=== PATIENT | male | born 1960 | race Caucasian/White ===

== ENCOUNTER 2018-01-11 10:02 | Emergency (ER) | payer OTHER ==
[~2018-01-11] VITALS: Ht 182.9 cm; Wt 63.7 kg
[~2018-01-11 10:02] MED LIST: DOXY40CA PO; [UNRECOGNIZED DRUG - CODE] OP
[2018-01-11 10:07] VITALS: BP 159/87; TEMP 36.4; Ht 182.9 cm; Wt 63.7 kg
--- NOTE | 2018-01-11 10:47 | DIAGNOSTIC IMAGING REPORT ---
L FOREARM 2 VIEWS ROUTINE CLINICAL HISTORY: Left forearm pain status post trauma COMPARISON: None DISCUSSION: There is a joint effusion at the level the elbow. No fractures or dislocations are visualized. The provided AP view is obliqued. There is an olecranon spur IMPRESSION: 1. Joint effusion at the level the elbow. No fractures are visualized. The presence of a joint effusion could indicate an occult fracture. Electronically signed by: Devang Slade M.D. 01/11/2018 10:46 AM Dictated Date/Time: 01/11/2018 10:44 AM
--- NOTE | 2018-01-11 10:48 | DIAGNOSTIC IMAGING REPORT ---
L WRIST MIN 3 VIEWS ROUTINE CLINICAL HISTORY: Left wrist pain status post trauma COMPARISON: None. DISCUSSION: No fractures or dislocations are visualized. IMPRESSION: No fractures identified. Electronically signed by: Devang Slade M.D. 01/11/2018 10:47 AM Dictated Date/Time: 01/11/2018 10:46 AM
--- NOTE | 2018-01-11 10:49 | DIAGNOSTIC IMAGING REPORT ---
L ELBOW MIN 3 VIEWS ROUTINE CLINICAL HISTORY: Left elbow pain status post trauma COMPARISON: None. DISCUSSION: There is a small olecranon spur. There is displacement of the anterior humeral fat pad indicative of a joint effusion. No fractures are identified on conventional radiographic imaging IMPRESSION: 1. No fractures or dislocations identified 2. Small joint effusion. In the setting of trauma this could indicate an occult fracture. Electronically signed by: Devang Slade M.D. 01/11/2018 10:48 AM Dictated Date/Time: 01/11/2018 10:47 AM
[2018-01-11] MEDS ORDERED: OXYC-57 PO (11:03)
--- NOTE | 2018-01-11 11:04 | EMERGENCY ROOM VISIT NOTE ---
ED Visit Note First contact with patient: 10:12 CHIEF COMPLAINT: Left forearm injury yesterday at work HISTORY OF PRESENT ILLNESS: Patient is a [id number] 57-year-old male who presents emergency department for evaluation of an injury to his left forearm that he sustained yesterday. He tripped on a bunched up a rug at work, landing on his left forearm. He states that he believes that he landed on his flexed left elbow, but that his wrist may also have been extended. He complains of pain in his wrist up to his forearm, slightly involving the elbow. Pain is worse primarily with wrist flexion and extension and pronation and supination. He applied ice last night and took Excedrin. He had significant difficulty sleeping due to his discomfort, he presently rates it a 10/10. He notes some swelling in his hand and wrist which has gone down. There is no numbness of the hand or weakness of the fingers. REVIEW OF SYSTEMS: Review of systems as per HPI. All other systems reviewed were negative. At least 6 systems reviewed. PMH: Electronic medical records are reviewed and summarized as above/below. See Problem List. SOCIAL HISTORY: Patient lives at home with his spouse. Employed. Smoker. PHYSICAL EXAM: Vital Signs: Reviewed Nurse's notes. CONSTITUTIONAL: Patient is a pleasant, well-appearing 57-year-old male who is awake and alert and in no acute distress. MUSCULOSKELETAL: Examination of the left upper extremity does not reveal any obvious deformity. There is slight swelling into the dorsum of the hands and the fingers. There is no left elbow joint effusion palpable, but the patient does have discomfort over the radial head. He can flex and extend fully. He has discomfort with pronation and supination. He has mild tenderness to the entire length of the shaft of the radius and the ulna, no obvious fracture crepitus appreciated. He has discomfort over the distal radius , no anatomic snuffbox tenderness noted. He has pain with wrist extension and flexion. Radial and ulnar pulses are easily palpable. Capillary refill is less than 2 seconds. Sensation light touch is intact over the entire left upper extremity. EMERGENCY DEPARTMENT COURSE: The patient was seen and assessed as above. X- rays of the left elbow, forearm and wrist were obtained. Wrist elbow x-rays were negative for acute fracture. Elbow/forearm films are suspicious for a left elbow effusion, likely indicative of an occult fracture. I do suspect a radial head fracture based on my review of the imaging. Treatment options were discussed with the patient, and he elected to proceed with an Ortho-Glass splint. A long-arm posterior Ortho-Glass splint and sling were applied to the left arm. Conservative care measures were discussed. Patient prefers over-the- counter medications, but was provided a prescription for Percocet to use as needed he was advised to follow-up with orthopedics as covered by his Worker's Compensation insurance for further care and management of his injury. Differential diagnoses entertained included elbow fracture/dislocation/sprain, forearm fracture, distal radius fracture, among others. Medication reconciliation: I attest that I have personally reviewed the patient' s current medication list. Blood pressure screening: Patient was found to have a slightly elevated blood pressure due to circumstances. I do not believe that the patient requires hypertension monitoring. Patient was reviewed in the [facility] [place] Prescription Drug Monitoring Program, and there were no red flags noted. L ELBOW MIN 3 VIEWS ROUTINE CLINICAL HISTORY: Left elbow pain status post trauma COMPARISON: None. DISCUSSION: There is a small olecranon spur. There is displacement of the anterior humeral fat pad indicative of a joint effusion. No fractures are identified on conventional radiographic imaging IMPRESSION: 1. No fractures or dislocations identified 2. Small joint effusion. In the setting of trauma this could indicate an occult fracture. L FOREARM 2 VIEWS ROUTINE CLINICAL HISTORY: Left forearm pain status post trauma COMPARISON: None DISCUSSION: There is a joint effusion at the level the elbow. No fractures or dislocations are visualized. The provided AP view is obliqued. There is an olecranon spur IMPRESSION: 1. Joint effusion at the level the elbow. No fractures are visualized. The presence of a joint effusion could indicate an occult fracture. L WRIST MIN 3 VIEWS ROUTINE CLINICAL HISTORY: Left wrist pain status post trauma COMPARISON: None. DISCUSSION: No fractures or dislocations are visualized. IMPRESSION: No fractures identified. Problem List Medical Problems: (1) Anterior uveitis Status: Resolved (2) Bilateral conjunctivitis Status: Resolved (3) Rosacea Status: Chronic (4) Uveitis Status: Chronic Current/Historical Medications Scheduled Doxycycline (Rosacea) (Oracea), 1 CAP PO DAILY Hypochlorous Acid (Avenova with Neutrox), 1 APPLN OP TID Scheduled PRN Oxycodone/Acetaminophen 5MG/325MG (Percocet 5MG/325MG), 1-2 TABS PO Q4 PRN for Pain Allergies Coded Allergies: No Known Allergies (Unverified , 09/08/15) Vital Signs Date Time Temp Pulse Resp B/P (MAP) Pulse Ox O2 Delivery O2 Flow Rate FiO2 01/11/18 11:20 78 16 97 01/11/18 10:07 36.4 71 18 159/87 99 Room Air Departure Information Impression Primary Impression: Left radial head fracture Additional Impressions: Fall Work related injury Prescriptions Oxycodone/Acetaminophen 5MG/325MG (PERCOCET 5MG/325MG) Tab 1-2 TABS PO Q4 Y for Pain, #20 TAB For Initial Treatment Prov: Lindsey Camp PA 01/11/18 Referrals Lamar Crooks D.ODomo (PCP) Patient Instructions [facility] Additional Instructions Percocet 5/325mg: Take 1-2 pills every four hours for breakthrough pain. Avoid alcohol, operating machinery or dangerous equipment, working on ladders or roofs , DRIVING, or situations where being under the influence may be dangerous. It is recommended to use an mhwy-qar-nhcgqah stool softener such as Colace, 100mg twice daily while taking this medication to avoid constipation. Ibuprofen(Motrin, Advil) may be used for fever or pain. Use 600mg every six hours as needed. Take with food. Avoid using more than 2400mg in a 24 hour period. Do not use 2400mg per day for more than three consecutive days without physician direction. Prolonged inappropriate use can lead to stomach upset or ulcers. This medication can be taken if you need to drive, work, or perform activities which may be dangerous when taking narcotic pain medication. (AND/OR) Acetaminophen(Tylenol) may be used for fever or pain. Use 1000mg every six hours as needed. Avoid using more than 3000mg in a 24 hour period. This medication can be taken if you need to drive, work, or perform activities which may be dangerous when taking narcotic pain medication. Ice compresses for 20 minutes at a time four times daily for 2-3 days. Use the sling as instructed. Remove your arm from the sling 4-6 times a day and move all the joints around to keep them loose. Rest and elevate your injury. Do not get the splint wet. If your splint feels excessively tight, you have worsening pain, develop numbness or tingling, or your digits appear blue, loosen the ignacia wrap. Then reapply the ignacia wrap gently without removing the splint. If your symptoms are not quickly relieved return to the ER for re- evaluation. Continue current medications. Return to the ER immediately for any numbness, tingling, severe pain, extreme swelling in the extremity or as needed. Follow up with orthopedics as covered by your worker's compensation insurance for further care and management of your injury. Problem Qualifiers Primary Impression: Left radial head fracture Encounter type: initial encounter Fracture type: closed Fracture alignment : nondisplaced Qualified Codes: S52.125A - Nondisplaced fracture of head of left radius, initial encounter for closed fracture Additional Impressions: Fall Encounter type: initial encounter Qualified Codes: W19.XXXA - Unspecified fall, initial encounter
[2018-01-11 11:20] VITALS: PULSE 78; O2SAT 97
== END 2018-01-11 11:22 | disposition home or self-care (01) ==
LOC: C.EDB 10:03 → C.EDA 11:22
DX: S52.122A Displaced fracture of head of left radius, initial encounter for closed fracture (principal); W01.198A Fall on same level from slipping, tripping and stumbling with subsequent striking against other object, initial encounter; Y99.0 Civilian activity done for income or pay; L71.9 Rosacea, unspecified; Z72.0 Tobacco use; Z79.899 Other long term (current) drug therapy